=== PATIENT | female | born 1960 | race Caucasian/White ===

== ENCOUNTER → 2016-08-28 | Day surgery (SDC) | payer BC ==
[2016-08-11 13:07] VITALS: Ht 167.6 cm; Wt 85.0 kg
[~2016-08-28] VITALS: Ht 167.6 cm; Wt 85.0 kg
[~2016-08-28] MED LIST: CALCTAB5 PO; LIDOCAINE HCL 2% 2 ML VIAL (20MG/ML) ONE; METF1TAB53 PO; MIDAZOLAM HCL 1 MG/ML 2ML VIAL ONE; MULT-506 PO; OMEG1360 PO; ONDANSETRON INJ 2 MG/ML 2 ML VIAL ONE; PRLSR20 PO; PROPOFOL IV EMULSION 10 MG/ML 20 ML VIAL IV ONE; TOPI50TA16 PO; [UNRECOGNIZED DRUG - OTHER] PO
--- NOTE | 2016-08-28 14:01 | Endo History and Physical ---
History & Physical Date of Service: Aug 28, 2016. Chief Complaint: reflux Referring Physician: Dr. Whitney Rainey History of Present Illness 55 yo CF who presents for EGD secondary to GERD. Past Medical History Reflux Past Surgical History Hx Cardiac Surgery: No Hx Internal Defibrillator: No Hx Pacemaker: No Hx Abdominal Surgery: Yes () Hx of Implantable Prosthesis: No Hx Post-Op Nausea and Vomiting: No Hx Cancer Surgery: No Hx Thoracic Surgery: No Hx Orthopedic: No Hx Urinary Tract Surgery: No Social History Smoking Status: Never Smoker Hx Substance Use: No Hx Alcohol Use: No Allergies Coded Allergies: Penicillins (Verified Allergy, Unknown, Amox = rash, 08/28/16) Current Medications Reported Home Medications Medications Dose Route/Sig Max Daily Dose Days Date Category [Revive] 1 Cap PO QAM 08/11/16 Reported Fish Oil (Index-3 Fatty Acids) 1 Cap Cap 1 Cap PO QAM 05/11/15 Reported Multivitamin (Multivitamins) Tab 1 Tab PO QAM 05/11/15 Reported Caltrate (Calcium) 600 Mg Tab 600 Mg PO BID 05/11/15 Reported Topamax (Topiramate) 50 Mg Tab 50 Mg PO HS 05/11/15 Reported Glucophage Ext Rel (Metformin Hcl) 1,000 Mg Tab 1,000 Mg PO BID 05/11/15 Reported Prilosec (Omeprazole) 20 Mg Capcr 20 Mg PO BID 05/11/15 Reported Vital Signs Weight (Kilograms): 85 Height (Feet): 5 Height (Inches): 6 Physical Exam General Appearance: WD/WN, no apparent distress Respiratory/Chest: Auscultation: breath sounds normal Cardiovascular: Heart Auscultation: RRR Abdomen: Bowel Sounds: normal Inspection & Palpation: soft, non-distended, no tenderness, guarding & rebound Assessment and Plan Assessment: 55 yo CF who presents for EGD secondary to GERD. Plan: Proceed with EGD.
--- NOTE | 2016-08-28 14:15 | Discharge Instructions ---
Endoscopy Patient Instructions Date / Procedure(s) Performed Aug 28, 2016. EGD Allergy Information Coded Allergies: Penicillins (Verified Allergy, Unknown, Amox = rash, 08/28/16) Discharge Date / Findings Aug 28, 2016. Gastritis s/p biopsies Hiatal hernia Medication Instructions Stopped Medication(s): last dose Metformin Sunday am OK to resume all medications today as prescribed Reported Home Medications Medications Dose Route/Sig Max Daily Dose Days Date Category [Revive] 1 Cap PO QAM 08/11/16 Reported Fish Oil ([place]-3 Fatty Acids) 1 Cap Cap 1 Cap PO QAM 05/11/15 Reported Multivitamin (Multivitamins) Tab 1 Tab PO QAM 05/11/15 Reported Caltrate (Calcium) 600 Mg Tab 600 Mg PO BID 05/11/15 Reported Topamax (Topiramate) 50 Mg Tab 50 Mg PO HS 05/11/15 Reported Glucophage Ext Rel (Metformin Hcl) 1,000 Mg Tab 1,000 Mg PO BID 05/11/15 Reported Prilosec (Omeprazole) 20 Mg Capcr 20 Mg PO BID 05/11/15 Reported Provider Instructions Activity Restrictions - No exercising or heavy lifting for 24 hours. - Do not drink alcohol the day of the procedure. - Do not drive a car or operate machinery until the day after the procedure. - Do not make any important decisions or sign important papers in 24 hours after the procedure. Following Day: - Return to full activity which may include returning to work/school. Diet Start your diet with liquids and light foods (jello, soup, juice, toast). Then eat your usual diet if not nauseated. Treatment For Common After Affects For mild abdominal pain, bloating, or excessive gas: - Rest - Eat lightly - Lie on right side Follow-Up Information Follow-up with Dr. Whitney Rainey as scheduled Anesthesia Information What You Should Know You have had a procedure that required some medicine to reduce anxiety and discomfort. This treatment is called moderate sedation. After receiving the treatment, you may be sleepy, but you will be able to breathe on your own. The effects of the treatment may last for several hours. Follow these instructions along with Activity/Diet recommendations noted above: * Do NOT do anything where dizziness or clumsiness would be dangerous. * Rest quietly at home today, then you can be up and about tomorrow. * Have a responsible person stay with you the rest of today. * You may have had an I.V. today. If so, you may take the dressing off later today. Recommendations Call your doctor if: * Trouble breathing * Continuous vomiting for more than 24 hours * Temperature above 101 degrees * Severe abdominal pain or bloating * Pain not relieved by pain medicine ordered * There is increased drainage or redness from any incision * A large amount of rectal bleeding greater than 2-3 tablespoons. (If you had a polyp/s removed or have hemorrhoids, a small amount of blood - from the rectum is to be expected.) * You have any unanswered questions or concerns. IN THE EVENT OF A SERIOUS EMERGENCY, GO TO THE NEAREST EMERGENCY ROOM Your discharge instructions were prepared by provider Nick Arnold. Patient Instructions Signature Page Sloane Encarnacion Patient (or Guardian) Signature/Date: I have read and understand the instructions given to me by my caregivers. Caregiver/RN/Doctor Signature/Date: The above-named patient and/or guardian has received patient instructions on this date. + Original Patient Signature Page (only) stays with chart. Please make copy for patient.
--- NOTE | 2016-08-28 14:33 | GI REPORT ---
Procedure Date: 08/28/2016 1:47 PM Procedure: Upper GI endoscopy Indications: Esophageal reflux Medicines: Monitored Anesthesia Care Complications: No immediate complications. Estimated Blood Loss: Estimated blood loss: none. Procedure: Pre-Anesthesia Assessment: - Prior to the procedure, a History and Physical was performed, and patient medications and allergies were reviewed. The patient's tolerance of previous anesthesia was also reviewed. The risks and benefits of the procedure and the sedation options and risks were discussed with the patient. All questions were answered, and informed consent was obtained. Prior Anticoagulants: The patient has taken no previous anticoagulant or antiplatelet agents. ASA Grade Assessment: II - A patient with mild systemic disease. After reviewing the risks and benefits, the patient was deemed in satisfactory condition to undergo the procedure. After obtaining informed consent, the endoscope was passed under direct vision. Throughout the procedure, the patient's blood pressure, pulse, and oxygen saturations were monitored continuously. The scope was introduced through the mouth, and advanced to the second part of duodenum. The upper GI endoscopy was accomplished without difficulty. The patient tolerated the procedure well. Findings: The esophagus was normal. A small hiatus hernia was present. Localized mild inflammation characterized by erythema was found in the gastric antrum. Biopsies were taken with a cold forceps for histology. The examined duodenum was normal. Impression: - Normal esophagus. - Small hiatus hernia. - Gastritis. Biopsied. - Normal examined duodenum. Recommendation: - Resume previous diet. - Continue present medications. - Await pathology results. - Return to GI office as previously scheduled. Nick Arnold DO 08/28/2016 2:32:21 PM This report has been signed electronically. Note Initiated On: 08/28/2016 1:47 PM I attest to the content of the Intraoperative Record and orders documented therein, exceptions below
[2016-08-28 14:45] VITALS: BP 118/83; PULSE 88; O2SAT 96
--- NOTE | 2016-08-28 14:47 | Anesthesiology Progress Note ---
Anesthesia Post Op Note Date & Time Aug 28, 2016 at 14:47 Vital Signs Pain Intensity: 0 Vital Signs Past 12 Hours Date Time Temp Pulse Resp B/P Pulse Ox O2 Delivery O2 Flow Rate FiO2 08/28/16 14:25 87 18 124/55 98 Room Air 08/28/16 14:15 91 18 105/58 94 Notes Mental Status: alert / awake / arousable, participated in evaluation Pt Amnestic to Procedure: Yes Nausea / Vomiting: adequately controlled Pain: adequately controlled Airway Patency, RR, SpO2: stable & adequate BP & HR: stable & adequate Hydration State: stable & adequate Anesthetic Complications: no major complications apparent
== END | disposition home or self-care (01) ==
LOC: C.GI 13:07
PROVIDERS: ATTEND Internal Medicine
DX: K21.9 Gastro-esophageal reflux disease without esophagitis (principal); K29.70 Gastritis, unspecified, without bleeding; K44.9 Diaphragmatic hernia without obstruction or gangrene; Z88.0 Allergy status to penicillin; G47.33 Obstructive sleep apnea (adult) (pediatric); R01.1 Cardiac murmur, unspecified; M85.80 Other specified disorders of bone density and structure, unspecified site; Z86.32 Personal history of gestational diabetes

== ENCOUNTER → 2017-01-24 | Outpatient (CLI) | payer BC ==
[~2017-01-24] MED LIST changes: -LIDOCAINE HCL 2% 2 ML VIAL (20MG/ML) ONE; -MIDAZOLAM HCL 1 MG/ML 2ML VIAL ONE; -ONDANSETRON INJ 2 MG/ML 2 ML VIAL ONE; -PROPOFOL IV EMULSION 10 MG/ML 20 ML VIAL IV ONE
--- NOTE | 2017-01-25 14:06 | MAMMOGRAPHY REPORT ---
BILATERAL DIGITAL SCREENING MAMMOGRAM TOMOSYNTHESIS WITH CAD: 01/24/2017 TECHNIQUE: Breast tomosynthesis in addition to standard 2D mammography was performed. Current study was also evaluated with a Computer Aided Detection (CAD) system. COMPARISON: Comparison is made to exams dated: 01/12/2016 mammogram, 03/17/2015 mammogram, 03/27/2014 s tereotactic biopsy, 03/27/2014 mammogram, 03/04/2014 mammogram, and 02/25/2014 mammogram - [facility]. BREAST COMPOSITION: The tissue of both breasts is heterogeneously dense, which may obscure small mas ses. FINDINGS: No suspicious masses, calcifications, or areas of architectural distortion are noted in ei ther breast. There has been no significant interval change compared to prior exams. A biopsy marker clip is again noted in the right 12:00 breast. IMPRESSION: ACR BI-RADS CATEGORY 2: BENIGN There is no mammographic evidence of malignancy. A 1 year screening mammogram is recommended. The pa tient will receive written notification of the results. Approximately 10% of breast cancers are not detected with mammography. A negative mammographic report should not delay biopsy if a clinically suggestive mass is present. Charmaine Perez M.D. ah/:01/25/2017 07:42:24 Pipe Cleaner: Soledad PATIÑO(Bianca)(M), [facility] letter sent: Normal 1/2 BI-RADS Code: ACR BI-RADS Category 2: Benign
== END | disposition home or self-care (01) ==
LOC: C.MAMM 17:05
PROVIDERS: ATTEND Nurse Practitioner Family
DX: Z12.31 Encounter for screening mammogram for malignant neoplasm of breast (principal)